=== PATIENT | female | born 1995 | race African-American/Black ===

== ENCOUNTER 2022-12-30 17:20 | Emergency (ER) | payer OTHER, SELFPAY ==
[2022-12-30 17:25] VITALS: BP 128/70; PULSE 129; RESP 16; TEMP 36.7; O2SAT 96; BMI 19.4
--- NOTE | 2022-12-30 17:38 | CT_ITS ---
[place] [id number] Patient Name: ESCOBAR KRISHNAMURTHY MRN: [id number] date: 1995 Sex: F Assigned Patient Location: ER Current Patient Location: [facility] Accession/Order Number: [id number] Exam Date: 12/30/2022 18:12 Report Date: 12/30/2022 19:03 At the request of: RYAN ALCOCER Procedure: CT abdomen pelvis wo con EXAMINATION: CT ABDOMEN AND PELVIS WITHOUT IV CONTRAST CLINICAL HISTORY: Left flank pain TECHNIQUE: Non-IV contrast imaging of the abdomen and pelvis was performed using standard technique, scanning from just above the dome of the diaphragm to the symphysis pubis. Unenhanced imaging is limited for the evaluation of some intra-abdominal and pelvic pathology. All CT scans at this facility use dose modulation, iterative reconstruction, and/or weight based dosing when appropriate to reduce radiation dose to as low as reasonably achievable. Contrast: IV: None COMPARISON: None. RESULT: Abdomen / Pelvis: Liver: Unremarkable. Biliary: The gallbladder is unremarkable. Spleen: No splenomegaly. Pancreas: Unremarkable. Adrenals: Normal. Kidneys: No calculus, hydronephrosis or finding to suggest a cyst or mass in the unenhanced kidney. GI Tract: No bowel dilation. Normal appendix. No diverticulosis. Lymph Nodes: No lymphadenopathy. Mesentery/peritoneum: No ascites. Retroperitoneum: No mass. Vasculature: No abdominal aortic or iliac artery aneurysm. Pelvis: 3.8 cm left adnexal cyst. Retroflexed uterus. Diffuse circumferential urinary bladder wall thickening, measuring up to 5 mm Bones/Soft Tissues: No acute abnormality. Lower thorax: Unremarkable. CT/CT abdomen pelvis wo con IMPRESSION: Circumferential urinary bladder wall thickening, concerning for cystitis. 3.8 cm left adnexal cyst. Electronically authenticated by: KRISTEL ORR Date: 12/30/2022 19:03
--- NOTE | 2022-12-30 17:39 | ED.GENADUL1 ---
HPI - General Adult General Chief complaint: Back Pain/Injury Stated complaint: Lower Back Pain, Headache, Fever Time Seen by Provider: 12/30/22 17:26 Source: patient Mode of arrival: walk-in History of Present Illness HPI narrative: Patient is a 27-year-old female who presents to the emergency department for a one-day history of pain across the low back. She reports fevers and nausea but has had no vomiting or diarrhea. She reports temperatures as high as 102.0 Fahrenheit prior to arrival, she did take Tylenol before she came to the Emergency Room. She is not concerned for . She denies urinary symptoms. She states she has had a headache today, no cough, congestion or sore throat. She is tachycardic on arrival to the Emergency Room. She has no history of kidney stone. Related Data Previous Rx's Medication Instructions Recorded cephalexin 500 mg capsule 500 mg PO Q8H 7 days #21 caps 12/30/22 hydrocodone 5 mg-acetaminophen 325 1 tab PO Q6H PRN pain #12 tabs 12/30/22 mg tablet ketorolac 10 mg tablet 10 mg PO TID PRN pain #10 tabs 12/30/22 ondansetron 4 mg disintegrating 4 mg PO Q6H PRN nausea and 12/30/22 tablet vomiting #12 tabs Allergies Allergy/AdvReac Type Severity Reaction Status Date / Time sertraline [From Zoloft] AdvReac Severe Verified 12/30/22 17:28 Review of Systems ROS Constitutional Reports: fever and chills Ears, nose, mouth, and throat Denies: throat pain or nasal congestion Cardiovascular Denies: chest pain Respiratory Denies: shortness of breath or cough Gastrointestinal Reports: nausea; Denies: abdominal pain or vomiting Genitourinary Denies: painful urination Musculoskeletal Reports: back pain Integumentary/Breast Denies: rash Neurological Reports: headache Endocrine Denies: excessive urination Exam Narrative Exam Narrative: Gen.: Awake, alert, in no distress Head: Normocephalic, atraumatic ENT: Moist mucous membranes Respiratory: No respiratory distress, lungs clear bilaterally Cardio: Tachycardic Gastrointestinal: Abdomen is soft, nondistended and nontender to palpation; diffuse tenderness of the low back with moderate tenderness of the left flank Extremities: Moves extremities equally Psych: Normal mood and affect Neuro: No focal neuro deficit Skin: Warm, dry, intact Constitutional Vital Signs, click to edit/add: Last Vital Signs Temp 98.1 F 12/30/22 17:25 Pulse 113 H 12/30/22 18:52 Resp 20 12/30/22 18:52 BP 117/72 12/30/22 18:52 Pulse Ox 98 12/30/22 18:52 O2 Del Method Room Air 12/30/22 17:25 Course Vital Signs Vital signs: Vital Signs Temperature 98.1 F 12/30/22 17:25 Pulse Rate 129 H 12/30/22 17:25 Respiratory Rate 16 12/30/22 17:25 Blood Pressure 128/70 12/30/22 17:25 Pulse Oximetry 96 12/30/22 17:25 Oxygen Delivery Method Room Air 12/30/22 17:25 Temperature 98.1 F 12/30/22 17:25 Pulse Rate 113 H 12/30/22 18:52 Respiratory Rate 20 12/30/22 18:52 Blood Pressure 117/72 12/30/22 18:52 Pulse Oximetry 98 12/30/22 18:52 Oxygen Delivery Method Room Air 12/30/22 17:25 Medical Decision Making MDM Narrative Medical decision making narrative: Patient treated with IV fluids with improvement of tachycardia. She was given morphine, Toradol, Zofran with improvement of pain. Lab studies show mildly elevated white blood cell count with otherwise unremarkable labs and normal lactic acid. Patient has a nitrite positive urinary tract infection. CT of the abdomen and pelvis shows the patient has thickening of the bladder consistent with cystitis which is in line with her urine specimen. There is also a 3.8 cm left adnexal cyst which may be contributing to the patient's low back pain. She will be discharged home with pain medication, antibiotics and nausea medication. She was given IV Rocephin in the Emergency Room prior to discharge. Stable at time of reevaluation by attending physician, abdomen is soft and benign and the patient is well-hydrated and nontoxic. Medical Records Medical records reviewed: Yes I reviewed the patient's medical records Lab Data Lab results reviewed: Yes I reviewed the patient's lab results Labs: Lab Results 12/30/22 12/30/22 12/30/22 Range/Units 17:30 17:47 19:30 WBC 12.6 H (4.0-11.0) 10^3/uL RBC 4.75 (4.20-5.40) 10^6/uL Hgb 12.9 (12.0-16.0) g/dL Hct 39.1 (36.0-48.0) % MCV 82.3 (81.0-99.0) fL MCH 27.2 (26.7-34.0) pg MCHC 33.0 (29.9-35.2) g/dL RDW 13.8 (11.0-15.0) % Plt Count 150 (150-450) 10^3/uL MPV 11.9 (9.5-13.5) fL Neut % (Auto) 83.7 H (43.0-75.0) % Lymph % (Auto) 6.0 L (20.5-60.0) % [place] % (Auto) 9.6 (1.7-12.0) % Eos % (Auto) 0.1 L (0.9-7.0) % Baso % (Auto) 0.2 (0.2-2.0) % Neut # (Auto) 10.6 H (1.4-6.5) 10^3/uL Lymph # (Auto) 0.8 L (1.2-3.8) 10^3/uL [place] # (Auto) 1.2 H (0.3-0.8) 10^3/uL Eos # (Auto) 0.0 (0.0-0.7) 10^3/uL Baso # (Auto) 0.0 (0.0-0.1) 10^3/uL Abs Immat Gran (auto) 0.05 H (0.00-0.03) 10^3/uL Imm/Tot Granulo (auto) 0.4 (0.0-0.5) % VBG pH 7.557 H (7.330-7.430) VBG pCO2 24.3 L (40.0-52.0) mmHg Sodium 137 (136-145) mmol/L Potassium 2.9 L* (3.5-5.1) mmol/L Chloride 100 (98-107) mmol/L Carbon Dioxide 24.8 (21.0-32.0) mmol/L Anion Gap 15.1 BUN 12.0 (7.0-18.0) mg/dL Creatinine 0.94 (0.55-1.02) mg/dL Est GFR ( Amer) >60 (>=60) Est GFR (Non-Af Amer) >60 (>=60) BUN/Creatinine Ratio 12.8 Glucose 108 H (74-106) mg/dL Lactate 1.0 (0.4-2.0) mmol/L Calcium 9.3 (8.5-10.1) mg/dL Total Bilirubin 1.0 (0.2-1.0) mg/dL AST 13 L (15-37) U/L ALT 15 (14-59) U/L Alkaline Phosphatase 76 (46-116) U/L Total Protein 7.9 (6.4-8.2) g/dL Albumin 4.6 (3.4-5.0) g/dL Globulin 3.3 g/dL Albumin/Globulin Ratio 1.4 Serum HCG, Qual Negative (NEGATIVE) Urine Color Yellow (YELLOW) Urine Clarity Clear (CLEAR) Urine pH 5.5 (5.0-9.0) Ur Specific [place] >=1.030 A (1.005-1.025) Urine Protein 100 A (NEG/TRACE) mg/dL Urine Glucose (UA) Negative (NEGATIVE) mg/dL Urine Ketones 15 A (NEGATIVE) mg/dL Urine Occult Blood Moderate A (NEGATIVE) Urine Nitrite Positive A (NEGATIVE) Urine Bilirubin Negative (NEGATIVE) Urine Urobilinogen 1.0 (0.2-1.0) EU/dL Ur Leukocyte Esterase Small A (NEGATIVE) Urine RBC 2-5 A (0-2) #/HPF Urine WBC 5-10 A (NONE SEEN) #/HPF Ur Squamous Epith Cells Few A (NONE/RARE) #/LPF Urine Crystals None seen (None Seen) #/HPF Urine Bacteria Large A (NONE SEEN) #/HPF Urine Casts None seen (NONE SEEN) #/LPF Urine Mucus Moderate A (NONE SEEN) Ur Culture Indicated? Yes SARS-CoV-2 (PCR) Negative (NEGATIVE) Imaging Data CT scan - abdomen: Attestation: I have reviewed the pertinent imaging results. Radiologist's impression: Procedure: CT abdomen pelvis wo con EXAMINATION: CT ABDOMEN AND PELVIS WITHOUT IV CONTRAST CLINICAL HISTORY: Left flank pain TECHNIQUE: Non-IV contrast imaging of the abdomen and pelvis was performed using standard technique, scanning from just above the dome of the diaphragm to the symphysis pubis. Unenhanced imaging is limited for the evaluation of some intra-abdominal and pelvic pathology. All CT scans at this facility use dose modulation, iterative reconstruction, and/or weight based dosing when appropriate to reduce radiation dose to as low as reasonably achievable. Contrast: IV: None COMPARISON: None. RESULT: Abdomen / Pelvis: Liver: Unremarkable. Biliary: The gallbladder is unremarkable. Spleen: No splenomegaly. Pancreas: Unremarkable. Adrenals: Normal. Kidneys: No calculus, hydronephrosis or finding to suggest a cyst or mass in the unenhanced kidney. GI Tract: No bowel dilation. Normal appendix. No diverticulosis. Lymph Nodes: No lymphadenopathy. Mesentery/peritoneum: No ascites. Retroperitoneum: No mass. Vasculature: No abdominal aortic or iliac artery aneurysm. Pelvis: 3.8 cm left adnexal cyst. Retroflexed uterus. Diffuse circumferential urinary bladder wall thickening, measuring up to 5 mm Bones/Soft Tissues: No acute abnormality. Lower thorax: Unremarkable. IMPRESSION: Circumferential urinary bladder wall thickening, concerning for cystitis. 3.8 cm left adnexal cyst. Electronically authenticated by: KRISTEL ORR Date: 12/30/2022 19:03 Discharge Plan Discharge Chief Complaint: Back Pain/Injury Clinical Impression: UTI (urinary tract infection), Low back pain, Cyst of left ovary Patient Disposition: Home, Self-Care Time of Disposition Decision: 19:46 Condition: Good Mode of Transportation: Private Vehicle Prescriptions / Home Meds: New hydrocodone-acetaminophen 5-325 mg tablet 1 tab PO Q6H PRN (Reason: pain) Qty: 12 0RF Rx Instructions: DX: M54.5 ketorolac 10 mg tablet 10 mg PO TID PRN (Reason: pain) Qty: 10 0RF cephalexin 500 mg capsule 500 mg PO Q8H 7 Days Qty: 21 0RF ondansetron 4 mg tablet,disintegrating 4 mg PO Q6H PRN (Reason: nausea and vomiting) Qty: 12 0RF Instructions: Ovarian Cyst (ED), Urinary Tract Infection in Women (ED), Acute Low Back Pain (ED) Stand Alone Forms: Portal Instructions Referrals: SCARLETT CLIFFORD [Primary Care Provider] - 1 week Discharge Date/Time: 12/30/22 20:57
[2022-12-30 17:55] LABS: PCO2 VBG 24.3 mmHg (40.0-52.0); pH VBG 7.557 (7.330-7.430)
[2022-12-30 17:57] LABS: Basophils Percent Auto 0.2 % (0.2-2.0); Eosinophils Percent Auto 0.1 % (0.9-7.0); Hematocrit 39.1 % (36.0-48.0); Hemoglobin 12.9 g/dL (12.0-16.0); Immature Granulocytes Abs Auto 0.05 10^3/uL (0.00-0.03); Immature Granulocytes Pct Auto 0.4 % (0.0-0.5); Lymphocytes Absolute Auto 0.8 10^3/uL (1.2-3.8); Mean Corpuscular Hemoglobin 27.2 pg (26.7-34.0); Mean Corpuscular Volume 82.3 fL (81.0-99.0); Mean Platelet Volume 11.9 fL (9.5-13.5); Monocytes Absolute Auto 1.2 10^3/uL (0.3-0.8); Monocytes Percent Auto 9.6 % (1.7-12.0); Neutrophils Absolute Auto 10.6 10^3/uL (1.4-6.5); Neutrophils Percent Auto 83.7 % (43.0-75.0); Platelet Count 150 10^3/uL (150-450); Red Blood Count 4.75 10^6/uL (4.20-5.40); Red Cell Distribution Width 13.8 % (11.0-15.0); White Blood Count 12.6 10^3/uL (4.0-11.0)
[2022-12-30] MEDS: 0.9 % SODIUM CHLORIDE 1,000 ML 999 ML IV (18:01)
[2022-12-30] MEDS: MORPHINE SULFATE 4 MG/ML VIAL IV (18:02)
[2022-12-30] MEDS: KETOROLAC TROMETHAMINE 30 MG/ML VIAL IVP (18:02)
[2022-12-30] MEDS: ONDANSETRON PF 4 MG/2 ML VIAL IV (18:02)
[2022-12-30 18:04] LABS: SARS-CoV-2 Ag NEGATIVE (NEGATIVE)
[2022-12-30 18:07] LABS: HCG Qualitative NEGATIVE (NEGATIVE)
[2022-12-30 18:12] VITALS: BP 118/87; PULSE 118; RESP 20; O2SAT 97
[2022-12-30 18:16] LABS: Alanine Aminotransferase 15 U/L (14-59); Albumin Globulin Ratio 1.4; Albumin Level 4.6 g/dL (3.4-5.0); Alkaline Phosphatase 76 U/L (46-116); Anion Gap 15.1; Aspartate Amino Transferase 13 U/L (15-37); BUN Creatinine Ratio 12.8; Calcium 9.3 mg/dL (8.5-10.1); Carbon Dioxide 24.8 mmol/L (21.0-32.0); Chloride 100 mmol/L (98-107); Estimated GFR (African America >60 (>=60); Estimated GFR (Non-African Ame >60 (>=60); Globulin 3.3 g/dL; Glucose 108 mg/dL (74-106); Sodium 137 mmol/L (136-145); Total Protein 7.9 g/dL (6.4-8.2)
[2022-12-30 18:17] LABS: Potassium 2.9 mmol/L (3.5-5.1)
[2022-12-30] MEDS: POTASSIUM CHLORIDE 10 MEQ ER TABLET 40 MEQ PO (18:31)
[2022-12-30 18:52] VITALS: BP 117/72; PULSE 113; RESP 20; O2SAT 98
[2022-12-30 19:37] LABS: Bilirubin Urine NEGATIVE (NEGATIVE); Blood Urine MODERATE (NEGATIVE); Clarity Urine CLEAR (CLEAR); Color Urine YELLOW (YELLOW); Glucose Urine UA NEGATIVE (NEGATIVE); Ketones Urine 15 mg/dL (NEGATIVE); Leukocyte Esterase Urine SMALL (NEGATIVE); Nitrite Urine POSITIVE (NEGATIVE); Protein Urine 100 mg/dL (NEG/TRACE); Specific Gravity Urine >=1.030 (1.005-1.025); pH Urine 5.5 (5.0-9.0)
[2022-12-30 19:39] LABS: Urine Microscopic Indicated YES
[2022-12-30 19:51] LABS: Bacteria Urine LARGE #/HPF (NONE SEEN); Cast Seen? NONE SEEN #/LPF (NONE SEEN); Crystals Seen? None Seen #/HPF (None Seen); Mucus Urine MODERATE (NONE SEEN); Squamous Epithelial Cell Urine FEW #/LPF (NONE/RARE); Urine Culture Indicated YES
[2022-12-30] MEDS: CEFTRIAXONE 1,000 MG in 0.9 % SODIUM CHLORIDE 50 ML 100 MG IV (20:18)
[2022-12-31 16:02] LABS: SARS-CoV-2 NAA NOT DETECTED (NOT DETECTE)
--- NOTE | 2023-01-04 07:11 | PC.NURSE ---
01/04/[address] miller reviewed pt urine c+s nno at this time. Niesha Elmore RN
== END 2022-12-30 20:57 | disposition home or self-care (01) ==
PROVIDERS: Physician Assistant; Emergency Provider Emergency Medicine; PCP Family Medicine
DX: N39.0 Urinary tract infection, site not specified (principal); M54.50 Low back pain, unspecified; N83.202 Unspecified ovarian cyst, left side; Z20.822 Contact with and (suspected) exposure to COVID-19; Z79.899 Other long term (current) drug therapy
CPT/HCPCS: 36415; 74176; 80053; 81001; 82800; 83605; 84703; 85025; 87040; 87086; 87150; 87186; 87635; 87811; 96365; 96375; 99285